=== PATIENT | female | born 1975 | race Caucasian/White ===

== ENCOUNTER 2024-05-09 06:25 | Day surgery (SDC) | payer BC, SELFPAY ==
[2024-05-09 06:22] VITALS: BP 118/81
[2024-05-09 06:26] VITALS: BMI 23.5
[2024-05-09] MEDS: TYLENOL 1000 MG PO (06:30)
[2024-05-09 06:41] VITALS: BMI 23.5
[2024-05-09] MEDS: NORMOSOL-R 1000 IV (07:10)
[2024-05-09 08:02] VITALS: BP 125/90
[2024-05-09 08:15] VITALS: BP 102/50
--- NOTE | 2024-05-09 08:23 | OR.RPT ---
Addendum entered and electronically signed by Frank Orozco MD 05/09/24 10:00:
The assistance of Aniya ECHEVERRIA was required due to the complexity of the procedure. During the procedure he assisted with retraction, resection, and closure of the wound.
Original Note:
Operative Report
Operative Report
Primary Surgeon: Pam
Assisting: Aniya ECHEVERRIA
Pre-op Diagnosis: Right shoulder lipoma
Post-op Diagnosis: Same
Procedure Performed: Excision of lipoma
Anesthesia Type: MAC local
Specimen / Cultures: Lipoma
Estimated Blood Loss: 1cc
Complications: none immediate
Operative Findings: 4cm x 3cm x 1cm lipoma excised in toto
Date of Surgery: 05/09/24
Indications: This 48F developed a symptomatic right shoulder lipoma and open excision was elected.
PROCEDURE: After informed consent was obtained, the patient was brought to the operative suite and placed supine on the operating table. The patient was sedated, prepped and draped in the usual sterile manner and an adequate local anesthetic was
administered using lidocaine 1% with epinephrine.
A full thickness skin incision was made over the lump and the incision was carried down to the lipoma capsule. Bovie electrocautery and Metzenbaum sallie were used to disrupt surrounding attachments to skin, fascia and muscle. The lipoma was
delivered through the wound and deep attachments were controlled with electrocautery.
The wound was then irrigated with copious sterile saline, and hemostasis was obtained using Bovie electrocautery. The skin was approximated with 3-0 Vicryl deep dermal interrupted sutures and 4-0 monocryl suture in a subcuticular fashion. Topical
skin glue was then applied. All surgical counts were reported as correct.
The patient tolerated the procedure well and was taken to the PACU in stable condition.
[2024-05-09 08:30] VITALS: BP 105/51
== END 2024-05-09 08:50 | disposition home or self-care (01) ==
LOC: SDS 06:25
PROVIDERS: ATTENDING PHYSICIAN Surgery
DX: D17.21 Benign lipomatous neoplasm of skin and subcutaneous tissue of right arm (principal)
CPT/HCPCS: 11406; 88304